=== PATIENT | female | born 1950 | race Caucasian/White ===

== ENCOUNTER 2018-11-17 07:45 | Day surgery (SDC) | payer MEDICARE, OTHER ==
[~2018-11-17 07:45] MED LIST: BRIMONIDINE 0.2% OPHTH DROPS 5 ML ONE; BSS/LIDOCAINE/EPINEPHRINE 1 ML SYRINGE ONE; CYCLOPENTOLATE 1% OPHTH DROPS 2 ML ONE; KETOROLAC 0.45% OPHTH DROPS ONE; PHENYLEPHRINE 2.5% OPHTH 2 ML DROPS ONE; PROPARACAINE 0.5% OPHTH DROPS 15 ML ONE; TIMOLOL 0.5% OPHTH DROPS ONE; TRIAMCIN/MOXIFLOX OPHTHALMIC 0.6 ML VIAL IO ONE; VANCOMYCIN OPHTHALMI 8MG/0.8ML 8 MG/0.8 ML SYRINGE IO ONE
--- NOTE | 2018-11-17 09:34 | ANESTHESIA ---
Pre-Anesthesia VS, & Labs - Diagnosis Left senile combined cataract - Procedure Left laser assisted phaco with IOL implant Vital Signs: Temp Pulse Resp BP Pulse Ox 36.4 C L 76 18 148/70 H 95 11/17/18 07:55 11/17/18 07:55 11/17/18 07:55 11/17/18 07:55 11/17/18 07:55 Height 5 ft 7 in Weight (kg) 69.3 kg - NPO >8 hours - Is Patient ?: No Home Medications and Allergies Home Medications: Ambulatory Orders Celecoxib [CeleBREX] 200 mg PO DAILY 11/17/18 Hydrochlorothiazide 11/17/18 Celecoxib [CeleBREX] 200 mg PO DAILY 11/17/18 Hydrochlorothiazide 11/17/18 Allergies/Adverse Reactions: Allergies Allergy/AdvReac Type Severity Reaction Status Date / Time No Known Drug Allergies Allergy Verified 11/17/18 08:09 Anes History & Medical History - Anesthetic History Anesthesia Complications: reports: No previous complications Family history of Anesthesia Complications: Denies Family history of Malignant Hyperthermia: Denies - Medical History Cardiovascular: reports: None, Hypertension Gastrointestinal: reports: None Urinary: reports: None Neuro: reports: None Musculoskeletal: reports: Osteoarthritis Endocrine/Autoimmune: reports: None Blood Disorders: reports: None Skin: reports: None Smoking Status: Former smoker Psychosocial: reports: No issues indicated Exam General: Alert, Oriented x3 Dental: WNL Mouth Opening: Greater than 4 Fingerbreadths Neck Mobility: Normal Mallampati classification: I Thyromental Distance: greater than 6 cm Respiratory: Lungs clear Cardiovascular: Regular rate Neurological: Normal speech Mental/Cognitive Status: Alert/Oriented X3 Cognitive Status: Within normal limits Plan Anesthesia Type: MAC Consent for Procedure(s) Verified and Reviewed: Yes Code Status: Attempt Resuscitation ASA classification: 2-Mild systemic disease Is this case an emergency?: No
[2018-11-17] MEDS ORDERED: PROPARACAINE 0.5% OPHTH DROPS 15 ML LEFTEYE ONE (09:35)
[2018-11-17] MEDS ORDERED: EPINEPHrine 1 MG/ML AMP IVP ONE (09:35)
[2018-11-17] MEDS ORDERED: CHONDR SULF/HYALURONATE SYRINGE IO ONE (09:35)
[2018-11-17] MEDS ORDERED: BRIMONIDINE 0.2% OPHTH DROPS 5 ML OPTH ONE (09:35)
[2018-11-17] MEDS ORDERED: BSS/LIDOCAINE/EPINEPHRINE 1 ML SYRINGE IO ONE (09:37)
[2018-11-17] MEDS ORDERED: TIMOLOL 0.5% OPHTH DROPS OPTH ONE (09:38)
[2018-11-17] MEDS ORDERED: MIDAZOLAM 2 MG/2 ML VIAL IVP ONE (09:40)
[2018-11-17] MEDS ORDERED: LACTATED RINGERS 500 ML IV ONE (09:46)
[2018-11-17] MEDS ORDERED: KETOROLAC 15 MG/ML VIAL ONE (10:14)
[2018-11-17 10:19] VITALS: BP 119/58
--- NOTE | 2018-11-17 11:56 | OPERATIVE REPORT ---
DATE OF SERVICE: 11/17/2018 Physician: Jeronimo Funes MD DATE OF PREOPERATIVE DIAGNOSIS: Visually significant cataract, left eye. This was her first catarac t surgery. POSTOPERATIVE DIAGNOSIS: Visually significant cataract, left eye. This was her first cataract surge ry. NAME OF PROCEDURE: Phacoemulsification with posterior chamber intraocular lens implant, left eye, wi th laser assist. SURGEON: Jeronimo Funes MD ANESTHESIA: Monitored anesthesia care. COMPLICATIONS: None. OPERATIVE INDICATIONS: This is a 68-year-old woman with progressive vision loss in the left eye due to 2-3+ nuclear sclerotic and 1+ posterior subcapsular cataract. Best corrected visual acuity was 20 /20, with glare to hand motion vision in the left eye. Indications for surgery are overall decrease in vision, difficulty driving in low light or at night, difficulty driving at night because of headli ghts from the vehicles, and difficulty with glare or bright lights in any situation. 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 She was consented at length concerning the risks and benefits of cataract surgery, aft er which she expressed a desire to proceed with surgery. OPERATIVE PROCEDURE: The patient was taken to OR #3 and placed under monitored anesthesia care. A s urgical timeout was conducted confirming the correct patient, correct procedure, and correct surgical site. She was placed on the LenSx laser, and the eye docked to the laser interface. The laser perf ormed the capsulotomy, lens softening, phaco wounds and arcuate keratotomy incisions. She was then m christi to the operating microscope, given topical anesthesia, and prepped and draped in the usual steri le fashion. The eye was entered at the 6 and 3 o'clock positions. Intracameral Shugarcaine was inje cted into the anterior chamber, followed by Viscoat. The capsulorrhexis flap created by the LenSx la ser was removed from the anterior chamber. The nucleus was hydrodissected and phacoemulsified. The cortex was evacuated using automated infusion and aspiration. Provisc was injected in the capsular b ag, and a 17.5 diopter intraocular lens inserted in the bag. Approximately 0.8 mL of a mixture of Tr iamcinolone moxifloxacin and vancomycin was injected subconjunctivally in the superior quadrant for i nfection and inflammation prophylaxis. I and A was used to evacuate the fistulous materials. The ey e was inflated to physiologic pressure using balanced salt solution and found to be watertight. The patient was taken from the operating room in good condition and given postop instructions. TD: 11/17/2018 10:24
== END 2018-11-17 07:46 | disposition home or self-care (01) ==
LOC: SDS 07:45
PROVIDERS: ATTEND Ophthalmology
PROC: 08RK3JZ Replacement of Left Lens with Synthetic Substitute, Percutaneous Approach (ICD-10-PCS; principal; 2018-11-17 09:00)
DX: H25.812 Combined forms of age-related cataract, left eye (principal); I10 Essential (primary) hypertension; Z87.891 Personal history of nicotine dependence
CPT/HCPCS: 66984; A9270; J3490; J7120; V2632

== ENCOUNTER 2019-01-05 09:43 | Day surgery (SDC) | payer MEDICARE, OTHER ==
[2019-01-05] MEDS ORDERED: LACTATED RINGERS 500 ML IV ONE (10:43)
--- NOTE | 2019-01-05 10:48 | ANESTHESIA ---
Pre-Anesthesia VS, & Labs - Diagnosis right senile cataract - Procedure right cataract extraction with intraocular lens implant Height 5 ft 7 in - NPO >8 hours - Is Patient ?: Not Applicable Home Medications and Allergies Home Medications: Ambulatory Orders Atorvastatin [Lipitor] 10 mg PO DAILY 01/04/19 Celecoxib [CeleBREX] 200 mg PO DAILY 11/17/18 Hydrochlorothiazide 12.5 mg PO DAILY 11/17/18 Atorvastatin [Lipitor] 10 mg PO DAILY 01/04/19 Allergies/Adverse Reactions: Allergies Allergy/AdvReac Type Severity Reaction Status Date / Time No Known Drug Allergies Allergy Verified 11/17/18 08:09 Anes History & Medical History - Anesthetic History Anesthesia Complications: reports: No previous complications - Medical History Cardiovascular: reports: None, Hypertension Gastrointestinal: reports: None Urinary: reports: None Neuro: reports: None Musculoskeletal: reports: Osteoarthritis Endocrine/Autoimmune: reports: None Blood Disorders: reports: None Skin: reports: None Smoking Status: Former smoker Exam General: Alert Dental: WNL Neck Mobility: Normal Mallampati classification: I Respiratory: Lungs clear Mental/Cognitive Status: Alert/Oriented X3 Plan Anesthesia Type: MAC Consent for Procedure(s) Verified and Reviewed: Yes Code Status: Attempt Resuscitation ASA classification: 2-Mild systemic disease Is this case an emergency?: No
[2019-01-05] MEDS ORDERED: PROPARACAINE 0.5% OPHTH DROPS 15 ML RIGHTEYE ONE (10:50)
[2019-01-05] MEDS ORDERED: KETOROLAC 0.45% OPHTH DROPS RIGHTEYE ONE (10:50)
[2019-01-05] MEDS ORDERED: PHENYLEPHRINE 2.5% OPHTH 2 ML DROPS RIGHTEYE ONE (10:50)
[2019-01-05] MEDS ORDERED: CYCLOPENTOLATE 1% OPHTH DROPS 2 ML RIGHTEYE ONE (10:50)
[2019-01-05] MEDS ORDERED: MIDAZOLAM 2 MG/2 ML VIAL IVP ONE (11:33)
[2019-01-05] MEDS ORDERED: fentaNYL 100 MCG/2 ML VIAL IVP ONE (11:33)
[2019-01-05] MEDS ORDERED: CHONDR SULF/HYALURONATE SYRINGE IO ONE (11:39)
[2019-01-05] MEDS ORDERED: TIMOLOL 0.5% OPHTH DROPS OPTH ONE (11:39)
[2019-01-05] MEDS ORDERED: EPINEPHrine 1 MG/ML AMP IVP ONE (11:39)
[2019-01-05] MEDS ORDERED: BRIMONIDINE 0.2% OPHTH DROPS 5 ML OPTH ONE (11:39)
[2019-01-05] MEDS ORDERED: BSS/LIDOCAINE/EPINEPHRINE 1 ML SYRINGE IO ONE (11:39)
[2019-01-05] MEDS ORDERED: TRIAMCIN/MOXIFLOX OPHTHALMIC 0.6 ML VIAL IO ONE (11:40)
[2019-01-05] MEDS ORDERED: VANCOMYCIN OPHTHALMI 8MG/0.8ML 8 MG/0.8 ML SYRINGE IO ONE (11:40)
[2019-01-05] MEDS ORDERED: LACTATED RINGERS 300 ML IV ONE (11:45)
[2019-01-05 12:17] VITALS: BP 111/53
--- NOTE | 2019-01-05 13:07 | OPERATIVE REPORT ---
DATE OF SERVICE: 01/05/2019 Physician: Jeronimo Funes MD PREOPERATIVE DIAGNOSIS: Visually significant cataract, right eye, cataract surgery was performed on the left eye on 11/17/2018. POSTOPERATIVE DIAGNOSIS: Visually significant cataract, right eye, cataract surgery was performed on the left eye on 11/17/2018. PROCEDURE: Phacoemulsification with posterior chamber intraocular lens implant, right eye. SURGEON: Jeronimo Funes MD ANESTHESIA: Monitored anesthesia care. COMPLICATIONS: None. OPERATIVE INDICATIONS: This is a 68-year-old woman with progressive vision loss in the right eye due to 2-3+ nuclear sclerotic and 1+ posterior subcapsular cataract. Best corrected visual acuity was 2 0/20 with glare to 20/40 in the right eye. Indications for surgery were overall decrease in vision, difficulty seeing street signs, difficulty driving in low light or at night, difficulty driving at [facility] because of headlights from other vehicles, and difficulty with clearer or bright lights in any si tuation. She was consented at length concerning risks and benefits of cataract surgery, after which she expressed a desire to proceed with surgery. OPERATIVE PROCEDURE: The patient was taken into OR #3 and placed under monitored anesthesia care. A surgical timeout was conducted confirming the correct patient, correct procedure, and correct surgic al site. She was given topical anesthesia, and then prepped and draped in the usual sterile fashion. The eye was entered at the 12 and 9 o'clock positions. Intracameral Shugarcaine was injected into the anterior chamber, followed by Viscoat. A continuous-tear curvilinear capsulorrhexis was performe d. The nucleus was hydrodissected and phacoemulsified. The cortex was evacuated using automated inf usion and aspiration. Provisc was injected into the capsular bag, and a 17.5 diopter intraocular donn s inserted in the bag. Approximately 0.8 mL of a mixture of triamcinolone, moxifloxacin, and vancomy linnea was injected subconjunctivally in the superior quadrant for infection and inflammation prophylaxi s. I and A was used to evacuate the viscoelastic material. The eye was inflated to physiologic pres sure using balanced salt solution and found to be watertight. The patient was taken from the operati ng room in good condition and given postoperative instructions. TD: 01/05/2019 11:57
== END 2019-01-05 09:44 | disposition home or self-care (01) ==
LOC: SDS 09:43
PROVIDERS: ATTEND Ophthalmology
PROC: 08RJ3JZ Replacement of Right Lens with Synthetic Substitute, Percutaneous Approach (ICD-10-PCS; principal; 2019-01-05 11:30)
DX: H25.811 Combined forms of age-related cataract, right eye (principal); I10 Essential (primary) hypertension; Z87.891 Personal history of nicotine dependence; Z79.899 Other long term (current) drug therapy; Z98.42 Cataract extraction status, left eye
CPT/HCPCS: 66984; A9270; J3490; V2632

== ENCOUNTER 2019-01-23 12:35 | Outpatient (CLI) | payer MEDICARE, OTHER ==
[2019-01-24 13:02] LABS: HEPATITIS B SURFACE ANTIGEN NON-REACTIVE (NON-REACTIVE)
[2019-01-24 13:57] LABS: HEPATITIS C ANTIBODY NON-REACTIVE (NON-REACTIVE)
[2019-01-25 12:47] LABS: HSV 1 IGG TYPE SPECIFIC AB 12.6 index; HSV 2 IGG TYPE SPECIFIC AB 8.08 index
== END 2019-01-23 12:36 | disposition home or self-care (01) ==
LOC: LAB 12:35
PROVIDERS: ATTEND Obstetrics & Gynecology
DX: R21 Rash and other nonspecific skin eruption (principal)
CPT/HCPCS: 36415; 81599; 86695; 86696; 86787; 86803; 87340

== ENCOUNTER 2019-07-04 13:59 | Outpatient (CLI) | payer MEDICARE, OTHER ==
[2019-07-04] MEDS ORDERED: GADOBUTROL 10 MMOL/10 ML VIAL ONE (14:47)
[2019-07-04] MEDS ORDERED: GADOBUTROL 10 MMOL/10 ML VIAL IVP ONE (16:31)
--- NOTE | 2019-07-05 10:10 | MRI Report ---
Reason: BINOCULAR DIPLOPIA Procedure Date: 07/04/2019 Accession Number: [id number] / [id number] Procedure: MRI - Brain W/WO CPT Code: Final Report FULL RESULT: MRI BRAIN AND ORBITS WITHOUT AND WITH CONTRAST INDICATION: 68-year-old female with binocular diplopia. TECHNIQUE: Imaging of the brain and orbits has been performed. The following sequences were obtained: Brain 1. Sagittal T1 spin-echo. 2. Coronal fat-saturated T2. 3. Axial T1 3D, FLAIR, T2* and DWI. 4. 10 mL IV Gadavist. Postcontrast T1 3D and T1 spin-echo axials. Orbits 1. Thin slice, high-resolution, fat saturated T2 coronal. 2. Postcontrast, thin slice, high-resolution, fat-saturated T1 axial and coronal. COMPARISON: None. FINDINGS: Orbits There is evidence of previous cataract surgery bilaterally. Imaging of the optic globes is otherwise unremarkable. There is no evidence of retinal or choroidal detachment. No intraocular mass lesion is demonstrated. No abnormal T2 hyperintensity or enhancement is identified in either optic nerve. The extraocular muscles and lacrimal glands are symmetric. No intraorbital mass lesion is demonstrated. The superior ophthalmic veins are patent and appear to be of normal size. There is symmetric enhancement of the cavernous sinuses without evidence of cavernous sinus thrombosis or mass. The optic chiasm is normal and noncompressed. No pathology is identified in the distribution of the optic tracts, optic radiations or visual cortex. Brain There is a mild generalized prominence of the cerebral cortical sulci, considered within normal limits for stated age. Ventricular size is normal. A mild amount of white matter disease is identified in the supratentorial brain, likely representing chronic microangiopathy. The signal intensity of the cortex and white matter is otherwise unremarkable. In particular, no obvious brainstem lesion is demonstrated. There appear to be flow voids for the main intracranial arteries. No abnormal diffusion restriction is demonstrated. There is no evidence of acute or chronic hemorrhage on the T2*GRE sequence. No abnormal extra-axial fluid collection. No mass effect or midline shift. No enhancing space-occupying mass lesion is demonstrated. No pathologic meningeal or cranial nerve enhancement is identified. There appears to be normal intravascular contrast enhancement in the dural venous sinuses and deep venous structures. This effectively excludes the possibility of dural venous sinus thrombosis. Other: There is mild mucosal thickening scattered throughout the ethmoid air cells. The paranasal sinuses are otherwise essentially clear. No significant mastoid or middle ear effusion is demonstrated. The marrow signal intensity in the regional skeletal structures is unremarkable. IMPRESSION: 1. A mild amount of white matter disease is identified in the supratentorial brain. The findings are relatively nonspecific, however, this most likely represents chronic microangiopathy. 2. Otherwise unremarkable MRI examination of the brain and orbits. In particular, no potential etiology for binocular diplopia has been identified.
--- NOTE | 2019-07-07 09:50 | MRI Report ---
Reason: BINOCULAR DIPLOPIA Procedure Date: 07/04/2019 Accession Number: [id number] / [id number] Procedure: MRI - Angio Brain W/O (MRA) CPT Code: Final Report FULL RESULT: EXAM MRA BRAIN EXAM DATE: 07/04/2019 04:00 PM. CLINICAL HISTORY: BINOCULAR DIPLOPIA. History of daily headaches. COMPARISON: BRAIN W/WO 07/04/2019 3:50 PM. TECHNIQUE: Multiplanar, multisequence MRA sequences of the brain were performed. Other: None. Post-processing: Multiplanar 3D MIP reconstructions. IV Contrast: None. FINDINGS: The right vertebral artery intradural segment is smooth and nonstenotic. The left vertebral artery intradural segment is smooth and nonstenotic. The right posterior inferior cerebellar artery is without flow-limiting stenosis. There is a left AICA PICA anatomical variant. The right anterior inferior cerebellar artery is smooth and nonstenotic. The basilar artery is without flow-limiting stenosis. The right superior cerebellar artery is without flow-limiting stenosis. The left superior cerebellar artery is without flow-limiting stenosis. There is a small anterior communicating artery. The right P1 and P2 segments of the right posterior cerebral artery are without flow-limiting stenosis. The left P1 and P2 segments of the left posterior cerebral artery are without flow-limiting stenosis. The right posterior communicating artery is without flow-limiting stenosis. The left posterior communicating artery is without flow-limiting stenosis. The right intracranial internal carotid artery is smooth and nonstenotic. The left intracranial internal carotid artery is smooth and nonstenotic. The right M1 and proximal M2 segments of the right middle cerebral artery are smooth and nonstenotic. The left M1 and proximal M2 segments of the left middle cerebral artery are smooth and nonstenotic. The right A1 segment is smooth and nonstenotic. The left A1 segment is smooth and nonstenotic. There is a small anterior communicating artery. The right A2 segment of the right anterior cerebral artery is smooth and nonstenotic. The left A2 segment of the left anterior cerebral artery is smooth and nonstenotic. IMPRESSION: 1. There is no hemodynamically significant stenosis within the head. There is no evidence of cerebral aneurysm.
== END 2019-07-04 14:00 | disposition home or self-care (01) ==
LOC: DI 13:59
PROVIDERS: ATTEND Family Medicine
DX: H53.2 Diplopia (principal); R90.82 White matter disease, unspecified
CPT/HCPCS: 70553; A9585; 70544

== ENCOUNTER 2020-04-02 12:28 | Outpatient (CLI) | payer MEDICARE, OTHER ==
[2020-04-02 15:44] LABS: BASOPHILS % (AUTO) 0.2 %; EOSINOPHILS % (AUTO) 0.3 %; HGB - HEMOGLOBIN 14.1 g/dL (12.0-16.0); LYMPHOCYTES % (AUTO) 17.6 %; MEAN CORPUSCULAR HEMOGLOBIN 33.7 pg (27.0-31.0); MEAN CORPUSCULAR HGB CONC 35.5 g/dL (32.0-36.0); MEAN CORPUSCULAR VOLUME 94.7 fL (81.0-99.0); MEAN PLATELET VOLUME 11.4 fL (7.9-10.8); MONOCYTES # (AUTO) 0.4 10^3/uL (0.0-1.0); MONOCYTES % (AUTO) 6.7 %; NEUTROPHILS # (AUTO) 4.3 10^3/uL (1.5-6.6); PLT - PLATELET COUNT 223 10^3/uL (130-450); RED BLOOD COUNT 4.19 10^6/uL (4.20-5.40); RED CELL DISTRIBUTION WIDTH 12.9 % (12.0-15.0); WHITE BLOOD COUNT 5.8 x10^3/uL (4.8-10.8)
[2020-04-02 16:06] LABS: ALBUMIN 4.8 g/dL (3.2-5.5); ALBUMIN/GLOBULIN RATIO 1.5 (1.0-2.2); ALKALINE PHOSPHATASE 47 IU/L (42-121); ALT ALANINE AMINOTRANSFERASE 42 IU/L (10-60); AST ASPARTATE AMINOTRANSFERASE 35 IU/L (10-42); BILIRUBIN,TOTAL 0.7 mg/dL (0.2-1.0); BUN - BLOOD UREA NITROGEN 12 mg/dL (6-20); CALCIUM 9.5 mg/dL (8.5-10.3); CARBON DIOXIDE - CO2 26 mmol/L (21-32); CHLORIDE 101 mmol/L (101-111); CREATININE 0.7 mg/dL (0.4-1.0); GLUCOSE 104 mg/dL (70-100); SODIUM 136 mmol/L (135-145)
[2020-04-02 16:07] LABS: CRP - C-REACTIVE PROTEIN < 1.0 mg/dL (0-1.0)
[2020-04-02 16:12] LABS: THYROID STIMULATING HORMONE 1.56 uIU/mL (0.34-5.60)
[2020-04-02 16:13] LABS: FREE T4 (FREE THYROXINE) 0.84 ng/dL (0.58-1.64)
== END 2020-04-02 12:29 | disposition home or self-care (01) ==
LOC: LAB.S 12:28
PROVIDERS: ATTEND Physician Assistant
DX: M35.3 Polymyalgia rheumatica (principal); M53.83 Other specified dorsopathies, cervicothoracic region; R53.83 Other fatigue
CPT/HCPCS: 36415; 80053; 84439; 84443; 85025; 85651; 86140

== ENCOUNTER 2020-04-04 12:11 | Outpatient (CLI) | payer MEDICARE, OTHER ==
[2020-04-05 09:57] LABS: HIV AG/AB 4TH GEN NON-REACTIVE (NON-REACTIVE)
[2020-04-05 13:12] LABS: HEPATITIS A IGM NON-REACTIVE (NON-REACTIVE); HEPATITIS B SURFACE ANTIGEN NON-REACTIVE (NON-REACTIVE); HEPATITIS C ANTIBODY NON-REACTIVE (NON-REACTIVE)
== END 2020-04-04 12:12 | disposition home or self-care (01) ==
LOC: LAB.S 12:11
PROVIDERS: ATTEND Nurse Practitioner Family
DX: R53.81 Other malaise (principal); Z20.828 Contact with and (suspected) exposure to other viral communicable diseases
CPT/HCPCS: 36415; 80074; 87086; G0475; U0004; 87389

== ENCOUNTER 2020-04-10 14:33 | Outpatient (CLI) | payer MEDICARE, OTHER | END 2020-04-10 14:34 | disposition home or self-care (01) | LOC: LAB.S 14:33 | PROVIDERS: ATTEND Nurse Practitioner Family | DX: R53.81 Other malaise (principal) | CPT/HCPCS: 87086 ==

== ENCOUNTER 2020-04-17 12:41 | Outpatient (CLI) | payer MEDICARE, OTHER | END 2020-04-17 12:42 | disposition home or self-care (01) | LOC: LAB.S 12:41 | PROVIDERS: ATTEND Nurse Practitioner Family | DX: R53.81 Other malaise (principal) | CPT/HCPCS: 87086 ==

== ENCOUNTER 2020-04-24 07:40 | Outpatient (CLI) | payer MEDICARE, OTHER ==
[2020-04-24] MEDS ORDERED: IOVERSOL 320 50 ML VIAL ONE (08:08)
[2020-04-24] MEDS ORDERED: IOVERSOL 320 100 ML VIAL IVP ONE (08:08)
[2020-04-24] MEDS: IOVERSOL 320 50 ML VIAL PO ONE (13:39)
[2020-04-24] MEDS: IOVERSOL 320 100 ML VIAL IVP ONE (13:39)
--- NOTE | 2020-04-24 14:10 | CT Report ---
PROCEDURE: Abdomen/Pelvis W INDICATIONS: PELVIC AND PERINEAL PAIN CONTRAST: IV CONTRAST: Optiray 320 ml: 100 PO CONTRAST: Optiray 320 ml50 TECHNIQUE: After the administration of oral and intravenous contrast, 5 mm thick sections acquired from the diap hragms to the symphysis. 5 mm thick coronal and sagittal reformats were acquired. For radiation dos e reduction, the following was used: automated exposure control, adjustment of mA and/or kV accordin g to patient size. COMPARISON: None. FINDINGS: Image quality: Excellent. ABDOMEN: Lung bases: Patchy bibasilar atelectasis versus scarring. Heart size is normal. Moderate hiatal edilson ia. Solid organs: Liver and spleen are normal in size and enhancement. Gallbladder is unremarkable Sae iary system is non dilated. Pancreas enhances normally. No adrenal nodules. Kidneys demonstrate no rmal size and enhancement, without hydronephrosis. Peritoneum and bowel: Bowel loops demonstrate normal wall thickness and caliber. No free fluid or a ir. Nodes and vessels: No retroperitoneal or mesenteric adenopathy by size criteria. Aorta and inferior vena cava are normal in size. Mild aortic atherosclerotic calcifications. Miscellaneous: No ventral hernias. PELVIS: Genitourinary: The bladder is decompressed. Miscellaneous: No inguinal hernias or adenopathy. Bones: No suspicious bony lesions. No vertebral body compression fractures. IMPRESSION: 1. Moderate hiatal hernia. 2. No evidence acute abdominal process. Reviewed by: Aidan Latif MD on 04/24/2020 1:08 PM TRENT Approved by: Aidan Latif MD on 04/24/2020 1:08 PM AKDT Station ID: [id number]
== END 2020-04-24 07:41 | disposition home or self-care (01) ==
LOC: DI 07:40
PROVIDERS: ATTEND Nurse Practitioner Family
DX: K44.9 Diaphragmatic hernia without obstruction or gangrene (principal)
CPT/HCPCS: 74177; Q9967

== ENCOUNTER 2020-04-29 17:48 | Outpatient (CLI) | payer MEDICARE, OTHER ==
--- NOTE | 2020-04-29 21:01 | Ultrasound Report ---
PROCEDURE: Pelvic w/Transvaginal INDICATIONS: RELVIC AND PERINEAL PAIN TECHNIQUE: Real-time scanning was performed of the pelvic organs, with image documentation. Additional endovagi nal scanning was necessary due to incomplete visualization of the adnexal and endometrial structures by transabdominal scanning. COMPARISON: None. FINDINGS: Transabdominal scanning: Limited scanning through the kidneys shows no left-sided hydronephrosis. Mi ld prominence of right renal pelvis is seen. 3.5 x 3.3 cm right renal cyst is noted. No pathologic fr ee abdominal or pelvic fluid. Endovaginal scanning: Uterus: Uterus is normal in size at 5.1 x 1.9 x 2.9 cm. Mildly heterogeneous myometrial echotexture is seen. 2 x 2.1 x 2 cm intramural fibroid is seen in right anterior myometrium. 8 x 7 x 12 mm polyp is seen within endometrium near fundus. The endometrium measures 2 mm in combined thickness. No oth er endometrial mass or fluid is seen. Ovaries: Bilateral ovaries are not well visualized on this study. No gross adnexal mass or fluid is seen. IMPRESSION: 1. Uterine fibroid as above. Suggestion of a 8 x 7 x 12 mm endometrial polyp near fundus. [employer] correla tion is recommended. 2. Bilateral ovaries are not well visualized on this study. 3. Incidentally noted of mild prominence of right renal pelvis and right renal cyst as above. Reviewed by: Teddy Acuña MD on 04/29/2020 9:00 PM PDT Approved by: Teddy Acuña MD on 04/29/2020 9:00 PM PDT Station ID: [id number]
== END 2020-04-29 17:49 | disposition home or self-care (01) ==
LOC: DI 17:48
PROVIDERS: ATTEND Nurse Practitioner Family
DX: D25.1 Intramural leiomyoma of uterus (principal); R93.89 Abnormal findings on diagnostic imaging of other specified body structures
CPT/HCPCS: 76830; 76856

== ENCOUNTER 2020-06-05 13:21 | Outpatient (CLI) | payer MEDICARE, OTHER ==
--- NOTE | 2020-06-05 14:54 | XRAY Report ---
PROCEDURE: Lumbar Spine 2 View INDICATIONS: LOW BACK PAIN TECHNIQUE: 2 views of the lumbar spine were acquired. COMPARISON: None. FINDINGS: Bones: 5 [id number] vertebrae are present. There is normal bony alignment. No vertebral body compression fractures. No suspicious bony lesions. Note is made of mild facet osteoarthritis greate r on the left than the right at L5-S1. Soft tissues: Overlying bowel gas pattern is normal. No suspicious soft tissue calcifications. IMPRESSION: Left-sided predominant facet osteoarthritis at L5-S1. No compression fracture found. No significant disc height reduction. Reviewed by: Benjamín Smith MD on 06/05/2020 2:53 PM PDT Approved by: Benjamín Smith MD on 06/05/2020 2:53 PM PDT Station ID: [id number]
--- NOTE | 2020-06-05 14:57 | XRAY Report ---
PROCEDURE: Pelvis 1 View INDICATIONS: LOW BACK PAIN TECHNIQUE: 1 view(s) of the pelvis acquired. COMPARISON: CT abdomen/pelvis 04/24/2020 FINDINGS: Bones: No fractures or dislocations. No suspicious bony lesions. Mild symmetric hip joint space na rrowing, consistent with a small degree of osteoarthritis. Soft tissues: Visualized gas pattern is normal. No suspicious soft tissue calcifications. IMPRESSION: Source of low back pain is not seen. Mild symmetric hip joint osteoarthritis. Reviewed by: Benjamín Smith MD on 06/05/2020 2:56 PM PDT Approved by: Benjamín Smith MD on 06/05/2020 2:56 PM PDT Station ID: [id number]
== END 2020-06-05 13:22 | disposition home or self-care (01) ==
LOC: DI 13:21
PROVIDERS: ATTEND Internal Medicine Rheumatology
DX: M47.816 Spondylosis without myelopathy or radiculopathy, lumbar region (principal); M16.0 Bilateral primary osteoarthritis of hip
CPT/HCPCS: 72100; 72170

== ENCOUNTER 2020-06-28 10:35 | Outpatient (CLI) | payer MEDICARE, OTHER ==
[2020-06-28 10:52] LABS: BASOPHILS % (AUTO) 0.3 %; EOSINOPHILS % (AUTO) 1.1 %; LYMPHOCYTES # (AUTO) 1.1 10^3/uL (1.5-3.5); LYMPHOCYTES % (AUTO) 29.8 %; MEAN CORPUSCULAR HEMOGLOBIN 31.3 pg (27.0-31.0); MEAN CORPUSCULAR HGB CONC 33.8 g/dL (32.0-36.0); MEAN CORPUSCULAR VOLUME 92.6 fL (81.0-99.0); MEAN PLATELET VOLUME 10.6 fL (7.9-10.8); MONOCYTES # (AUTO) 0.4 10^3/uL (0.0-1.0); MONOCYTES % (AUTO) 9.5 %; NEUTROPHILS # (AUTO) 2.2 10^3/uL (1.5-6.6); PLT - PLATELET COUNT 223 10^3/uL (130-450); RED BLOOD COUNT 4.47 10^6/uL (4.20-5.40); RED CELL DISTRIBUTION WIDTH 12.3 % (12.0-15.0); WHITE BLOOD COUNT 3.7 x10^3/uL (4.8-10.8)
[2020-06-28 11:12] LABS: ALBUMIN 4.5 g/dL (3.2-5.5); ALBUMIN/GLOBULIN RATIO 1.5 (1.0-2.2); BILIRUBIN,TOTAL 0.7 mg/dL (0.2-1.0); CALCIUM 9.2 mg/dL (8.5-10.3); CREATININE 0.8 mg/dL (0.4-1.0); TOTAL PROTEIN 7.6 g/dL (6.7-8.2)
== END 2020-06-28 10:36 | disposition home or self-care (01) ==
LOC: LAB 10:35
PROVIDERS: ATTEND Emergency Medicine
DX: Z01.818 Encounter for other preprocedural examination (principal); N84.0 Polyp of corpus uteri; Z20.828 Contact with and (suspected) exposure to other viral communicable diseases
CPT/HCPCS: 36415; 80053; 85025; 93005; U0004

== ENCOUNTER 2020-07-03 07:25 | Day surgery (SDC) | payer MEDICARE, OTHER ==
[~2020-07-03 07:25] MED LIST changes: +ACETAMINOPHEN 1,000 MG/100 ML 100 ML IV ONE; -BRIMONIDINE 0.2% OPHTH DROPS 5 ML ONE; -BSS/LIDOCAINE/EPINEPHRINE 1 ML SYRINGE ONE; +CEFAZOLIN SODIUM IN 0.9 % NACL 2 GM/100 ML BAG IV ONE; +CELECOXIB 100 MG CAPSULE PO ONE; -CYCLOPENTOLATE 1% OPHTH DROPS 2 ML ONE; +GABAPENTIN 400 MG CAPSULE ONE; -KETOROLAC 0.45% OPHTH DROPS ONE; -PHENYLEPHRINE 2.5% OPHTH 2 ML DROPS ONE; -PROPARACAINE 0.5% OPHTH DROPS 15 ML ONE; -TIMOLOL 0.5% OPHTH DROPS ONE; -TRIAMCIN/MOXIFLOX OPHTHALMIC 0.6 ML VIAL IO ONE; -VANCOMYCIN OPHTHALMI 8MG/0.8ML 8 MG/0.8 ML SYRINGE IO ONE
[2020-07-03] MEDS ORDERED: PROPOFOL 200 MG/20 ML VIAL IVP ONE (07:26)
[2020-07-03] MEDS ORDERED: DEXAMETHASONE 4 MG/ML VIAL IVP ONE (07:26)
[2020-07-03] MEDS ORDERED: KETOROLAC 30 MG/ML VIAL IVP ONE (07:26)
[2020-07-03] MEDS ORDERED: ONDANSETRON 4 MG/2 ML VIAL IVP ONE (07:26)
[2020-07-03] MEDS ORDERED: fentaNYL 100 MCG/2 ML VIAL IVP ONE (07:26)
[2020-07-03] MEDS ORDERED: MIDAZOLAM 2 MG/2 ML VIAL IVP ONE (07:26)
[2020-07-03] MEDS ORDERED: ACETAMINOPHEN 1,000 MG/100 ML 100 ML IV ONE (07:26)
[2020-07-03] MEDS ORDERED: LIDOCAINE-MPF 2% 5 ML VIAL IM ONE (07:26)
[2020-07-03] MEDS ORDERED: BUPIVACAINE 0.25%-EPI 1:200000 PF 30 ML VIAL ONE (07:39)
[2020-07-03] MEDS ORDERED: SILVER NITRATE APPLICATOR TOP ONE (07:39)
[2020-07-03] MEDS ORDERED: LACTATED RINGERS 1,000 ML IV ONE ×2 (07:41→10:25)
--- NOTE | 2020-07-03 08:23 | ANESTHESIA ---
Pre-Anesthesia VS, & Labs - Diagnosis endometrial polyp - Procedure myosure hysteroscopy Vital Signs: Temp Pulse Resp BP Pulse Ox 36.6 C 72 12 136/66 H 94 07/03/20 07:43 07/03/20 07:43 07/03/20 07:43 07/03/20 07:43 07/03/20 07:43 Height: 5 ft 7 in Weight (kg): 74.6 kg Body Mass Index: 25.7 BMI Classification: Overweight - NPO >8 hours - Is Patient ?: No - Lab Results Current Lab Results: Laboratory Tests 07/03/20 07:59: POC Whole Bld Glucose 94 Lab results reviewed: Yes Home Medications and Allergies Home Medications: Ambulatory Orders Cholecalciferol [Vitamin D3] 5,000 unit PO DAILY 06/25/20 Hydroxychloroquine [Plaquenil] 300 mg PO DAILY 06/25/20 methylPREDNISolone [Medrol] 4 mg PO DAILY PRN 06/25/20 Celecoxib [CeleBREX] 100 - 200 mg PO DAILY 11/17/18 Hydrochlorothiazide 25 mg PO DAILY 11/17/18 Cholecalciferol [Vitamin D3] 5,000 unit PO DAILY 06/25/20 Hydroxychloroquine [Plaquenil] 300 mg PO DAILY 06/25/20 methylPREDNISolone [Medrol] 4 mg PO DAILY PRN 06/25/20 Allergies/Adverse Reactions: Allergies Allergy/AdvReac Type Severity Reaction Status Date / Time No Known Drug Allergies Allergy Verified 11/17/18 08:09 Anes History & Medical History - Anesthetic History Anesthesia Complications: reports: No previous complications Family history of Anesthesia Complications: Denies Family history of Malignant Hyperthermia: Denies - Medical History Cardiovascular: reports: None, Hypertension Pulmonary: reports: None Gastrointestinal: reports: None Urinary: reports: None Neuro: reports: None Musculoskeletal: reports: Osteoarthritis Endocrine/Autoimmune: reports: None Blood Disorders: reports: None Skin: reports: None Smoking Status: Former smoker - Surgical History General: Colonoscopy, EGD Eyes Ears Nose Throat (EENT): Cataracts, Tracheostomy Cardiothoracic: Other (thalmus surgery w/sternotomy) Exam General: Alert, Oriented x3, Cooperative Dental: WNL Mouth Openin Fingerbreadth Neck Mobility: Normal Mallampati classification: I Thyromental Distance: greater than 6 cm Respiratory: Lungs clear, Normal breath sounds, No respiratory distress Cardiovascular: Regular rate Neurological: Normal speech Mental/Cognitive Status: Alert/Oriented X3, Normal for patient Cognitive Status: Within normal limits Plan Anesthesia Type: General Consent for Procedure(s) Verified and Reviewed: Yes Code Status: Attempt Resuscitation ASA classification: 2-Mild systemic disease Is this case an emergency?: No
[2020-07-03] MEDS ORDERED: ePHEDrine 50 MG/ML VIAL IVP PRN (09:17)
[2020-07-03] MEDS ORDERED: NALOXONE 0.4 MG/ML VIAL IVP PRN (09:17)
[2020-07-03] MEDS ORDERED: ATROPINE ABBOJECT 1 MG/10 ML SYRINGE IVP PRN (09:17)
[2020-07-03] MEDS ORDERED: MORPHINE 2 MG/ML CARPUJECT IVP PRN (09:17)
[2020-07-03] MEDS ORDERED: fentaNYL 100 MCG/2 ML VIAL IVP PRN (09:17)
[2020-07-03] MEDS ORDERED: METOCLOPRAMIDE 10 MG/2 ML VIAL IVP PRN (09:17)
[2020-07-03] MEDS ORDERED: ONDANSETRON 4 MG/2 ML VIAL IVP PRN ×2 (09:17→10:27)
[2020-07-03] MEDS ORDERED: BUPIVACAINE 0.25%-EPI 1:200000 PF 30 ML VIAL SUBQ ONE ×2 (09:41)
[2020-07-03] MEDS ORDERED: LACTATED RINGERS 1,000 ML IV SCH (10:00)
[2020-07-03] MEDS ORDERED: oxyCODONE 5 MG TABLET PO PRN (10:27)
[2020-07-03] MEDS ORDERED: HYDROcod/ACETAM 5/325 MG TABLET PO PRN (10:27)
[2020-07-03] MEDS ORDERED: LORazepam 2 MG/ML VIAL IVP PRN (10:27)
[2020-07-03] MEDS: HYDROmorphone 0.5 MG/0.5 ML SYRINGE IVP PRN ×2 (10:33→10:45)
--- NOTE | 2020-07-03 10:33 | OPERATIVE REPORT ---
Operative Report - General Procedure Date: 07/03/20 Planned Procedure: Hysterscopic resection of emdonetrial poly. Pre-Op Diagnosis: endometrial polyp. Procedure Performed: Hysterscopic resection of endometrial polyp - Procedure Note Primary Surgeon: Donovan Lovett MD Anesthesia Provider: Mendoza Givens CRNA Anesthesia Technique: General LMA IV Fluids (mL): 700 Estimated Blood Loss (mL): 10 Urine Output (mL): 50
[2020-07-03] MEDS ORDERED: HYDROmorphone 0.5 MG/0.5 ML SYRINGE ONE ×2 (10:43→10:53)
[2020-07-03 11:34] VITALS: BP 122/52
--- NOTE | 2020-07-03 13:10 | OPERATIVE REPORT ---
DATE OF SERVICE: 07/03/2020 Physician: Donovan Lovett MD PREOPERATIVE DIAGNOSIS: Endometrial polyp. POSTOPERATIVE DIAGNOSIS: Endometrial polyp. PROCEDURE PERFORMED: Hysteroscopic resection of endometrial polyp with MyoSure. SURGEON: Donovan Lovett MD ANESTHESIA PROVIDER: ISAAC Horta. ANESTHETIC: General via laryngeal mask airway. FINDINGS: Upon entering the endometrial cavity, there was evidence of a polyp, which was attached to the anterior wall of the uterus. The uterus sounded 7 cm. The cervix was very stenotic. PROCEDURE: Following adequate general anesthesia via LMA, patient was placed in dorsal lithotomy pos ition in Jacob stirrups. At this point, she was prepped and draped in the usual fashion. A timeout was performed, at which concerns of a very stenotic cervix was reviewed. At this point, the cervix w as visualized, grasped with a single-tooth tenaculum. At this point, a lacrimal probe was used to is olate the endometrial canal. This was then progressively dilated up to a size 8 mm dilator. A video hysteroscope was then placed under direct visualization. The entire endometrial cavity was visualiz ed as well as the endometrial polyp, which appeared to be attached on the anterior wall of the uterus . Then, utilizing the MyoSure light this was resected in its entirety. The hysteroscope was used to visualize the base of the polyp as well as the cornual areas. There was no evidence of any further bleeding. The hysteroscope was removed. The cervix was released from the single-tooth tenaculum. T he uterosacral ligaments were injected both sides with 10 mL of 0.25% Marcaine with epinephrine. The patient tolerated the procedure well and was taken to recovery in stable condition. Sponge and need le counts were correct. TD: 07/03/2020 10:40
--- NOTE | 2020-07-03 17:31 | ANESTHESIA POST OP EVALUATION ---
Anesthesia Post Eval - Post Anesthesia Eval Vitals: Last Vital Signs Temp 36.9 C 07/03/20 11:33 Pulse 70 07/03/20 11:33 Resp 16 07/03/20 11:33 BP 122/52 L 07/03/20 11:33 Pulse Ox 94 07/03/20 11:33 CV Function Including HR & BP: positive: Stable Pain Control: positive: Satisfactory Nausea & Vomiting: positive: Negative Mental Status: positive: Baseline Respiratory Status: Airway Patent Hydration Status: Satisfactory Anesthesia Complications: positive: None
== END 2020-07-03 07:26 | disposition home or self-care (01) ==
LOC: SDS 07:25
PROVIDERS: ATTEND Obstetrics & Gynecology
PROC: 0UB98ZZ Excision of Uterus, Via Natural or Artificial Opening Endoscopic (ICD-10-PCS; principal; 2020-07-03 09:00)
DX: N84.0 Polyp of corpus uteri (principal); R10.2 Pelvic and perineal pain; N95.2 Postmenopausal atrophic vaginitis; I10 Essential (primary) hypertension; Z87.891 Personal history of nicotine dependence
CPT/HCPCS: 58558; A9270; J0131; J0690; J1170; J7120

== ENCOUNTER 2020-08-16 13:17 | Outpatient (CLI) | payer MEDICARE, OTHER ==
--- OUTSIDE RECORDS SUMMARY | 2020-08-21 01:40 | EXTERNAL MEDICAL SUMMARY RPT | Continuity of Care Document ---
:1950 Demographics Phone Unavailable Preferred Language Faroese Marital Status Unknown Sikh Affiliation Unknown Race Unknown Ethnic Group Unknown Author Organization [facility] Address [address] [place] [address] Phone Care Team Providers Name Role Phone MD Unavailable Unavailable MD Unavailable Unavailable Registrar Unavailable Unavailable Bogdan Unavailable Unavailable Registrar Unavailable Unavailable MA Unavailable Unavailable MD Unavailable Unavailable [place] Unavailable Unavailable Problems date description facility Finding [facility] Ex-smoker (finding) [facility] 2020-05-28 00:00:00 Details of drug misuse behavior [facility] 2020-05-28 00:00:00 Alcohol use [facility] 2020-05-28 00:00:00 Exercise [facility] C 2020-05-28 00:00:00 Alcohol intake [facility] 2020-05-28 00:00:00 Screening for malignant [facility] neoplasms of the cervix [facility] 2020-05-28 00:00:00 Encounter for screening for [facility] malignant neoplasm of cervix [facility] 2020-05-28 00:00:00 Former smoker [facility] C 2020-05-28 00:00:00 Screening for malignant [facility] neoplasm of cervix [facility] 2020-05-28 00:00:00 Tobacco use and exposure [facility] 2020-05-28 00:00:00 THIN PREP PAP with HPV 30+YRS [facility] OLD C 2020-05-28 00:00:00 Polyp of corpus uteri [facility] 2020-05-28 00:00:00 Health-related behavior [facility] C 2020-05-29 14:44 Urinary tract infection, [facility] 2020-05-29 15:00 Urinary tract infection, site [facility] 2020-06-05 13:21 [facility] 2020-06-05 13:21 SPONDYLOSIS W/O MYELOPATHY OR [facility] RADICULOPATHY, LUMBAR REGION 2020-06-05 13:21 [facility] 2020-06-20 00:00:00 Alcohol intake [facility] 2020-06-20 00:00:00 Tobacco use and exposure [facility] 2020-06-20 00:00:00 Alcohol use [facility] 2020-06-20 00:00:00 Exercise [facility] 2020-06-20 00:00:00 Health-related behavior [facility] 2020-06-20 00:00:00 [facility] 2020-06-20 00:00:00 Former smoker [facility] 2020-06-28 10:35 [facility]TERI [facility] 2020-07-09 00:00:00 Former smoker [facility] 2020-07-09 00:00:00 Health-related behavior [facility] 2020-07-09 00:00:00 Tobacco use and exposure [facility] 2020-07-09 00:00:00 Alcohol use [facility] 2020-07-09 00:00:00 Alcohol intake [facility] 2020-07-09 00:00:00 Exercise [facility] 2020-07-09 00:00:00 Details of drug misuse behavior [facility] 2020-07-25 00:00:00 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 2020-07-25 00:00:00 [facility] 2020-07-25 00:00:00 Other herpesviral infection [facility] 2020-08-08 00:00:00 Family history of unspecified [facility] malignant neoplasm 2020-08-08 00:00:00 Family history of malignant [facility] neoplasm, unspecified 2020-08-08 00:00:00 [facility] 2020-08-08 00:00:00 [facility]related behavior [facility] 2020-08-08 00:00:00 Tobacco [facility] and [facility] 2020-08-08 [facility]00[facility] 2020-08-08 00:00:00 [facility] history of [facility] 2020-08-08 00:00:00 Details of drug misuse behavior [facility] 2020-08-08 00:00:00 [facility] 2020-08-08 00:00:00 [facility] Allergies date description [facility] ISOSORBIDE MONONITRATE [facility] LISINOPRIL [facility] DULOXETINE [facility] No Known Drug Allergies [facility] ADHESIVE \T\ TAPE [facility] AMOXICILLIN [facility] GABAPENTIN [facility] MEPERIDINE [facility] PENICILLIN [facility] TOPIRAMATE [facility] HYDROCODONE-IBUPROFEN [facility] PENICILLINS [facility] SULFA ANTIBIOTICS [facility] NO KNOWN ALLERGIES [facility] NO KNOWN ALLERGIES [facility] hydrocodone bitartrate * [facility] acetaminophen [facility] clindamycin [facility]ide [facility] Medications date description facility 2020-07-25 00:00:00 null [facility] 2020-07-25 00:00:00 null [facility] 2020-07-25 00:00:00 VALACYCLOVIR HCL [facility] 2020-07-25 00:00:00 VALACYCLOVIR HCL [facility] 2020-07-25 00:00:00 [facility] 2020-07-25 00:00:00 null [facility] 2020-07-25 00:00:00 [facility] 2020-07-25 00:00:00 [facility]OVIR [facility] 2020-08-08 00:00:00 [facility] 2020[facility] 2020-08-08 00:00:00 NA SULFATE-K [facility]ATE[facility]MG [facility] 2020-08-08 00:00:00 NA SULFATE-K SULFATE-MG SULF [facility] Procedures date description facility 2020-05-29 00:00:00 [facility] date description facility 2020-05-29 00:00:00 [facility] date description facility 2020-05-29 00:00:00 [facility] date description facility 2020-05-29 00:00:00 [facility] date description facility 2020-05-29 00:00:00 [facility] date description facility 2020-06-27 00:00:00 [facility] date description facility 2020-06-27 00:00:00 [facility] date description facility 2020-06-27 00:00:00 [facility] date description facility 2020-06-27 00:00:00 [facility] Results Social History date description facility [id number] Ex-smoker (finding) [facility] date description facility 2020-05-28 00:00:00 Former smoker [facility] date description facility 2020-06-20 00:00:00 Former smoker [facility] date description facility 2020-07-09 00:00:00 Former smoker [facility] date description facility 2020-08-08 00:00:00 Former smoker [facility] Social History date description facility [phone] Ex-smoker ([facility] date description facility 2020-05-28 00:00:00 Former smoker [facility] date description facility 2020-06-20 00:00:00 Former smoker [facility] date description facility 2020-07-09 00:00:00 Former smoker [facility] date description facility 2020-08-08 00:00:00 Former smoker [facility] date description facility [id number]
== END 2020-08-16 13:18 | disposition home or self-care (01) ==
LOC: LAB 13:17
PROVIDERS: ATTEND Surgery
DX: Z01.812 Encounter for preprocedural laboratory examination (principal); Z80.0 Family history of malignant neoplasm of digestive organs; Z20.822 Contact with and (suspected) exposure to COVID-19

== ENCOUNTER 2020-08-20 07:51 | Day surgery (SDC) | payer MEDICARE, OTHER ==
[2020-08-20] MEDS ORDERED: LIDO GARGLE 30 ML BOTTLE ONE (10:00)
[2020-08-20] MEDS ORDERED: fentaNYL 250 MCG/5 ML VIAL ONE (10:08)
[2020-08-20] MEDS ORDERED: MIDAZOLAM 2 MG/2 ML VIAL ONE ×3 (10:08→10:41)
[2020-08-20] MEDS ORDERED: BENZOCAINE/TETRACAINE/BUTAMBEN 20 GM TOP ONE (10:20)
[2020-08-20] MEDS ORDERED: LIDO GARGLE 30 ML BOTTLE PO ONE (10:20)
[2020-08-20] MEDS ORDERED: PROPOFOL 200 MG/20 ML VIAL IVP ONE (10:59)
[2020-08-20] MEDS ORDERED: LACTATED RINGERS 1,000 ML IV ONE (11:12)
[2020-08-20 11:37] VITALS: BP 119/99
--- NOTE | 2020-08-20 11:38 | ANESTHESIA POST OP EVALUATION ---
Anesthesia Post Eval - Post Anesthesia Eval Vitals: Last Vital Signs Temp 36.7 C 08/20/20 11:20 Pulse 80 08/20/20 11:34 Resp 20 08/20/20 11:34 BP 119/99 H 08/20/20 11:34 Pulse Ox 95 08/20/20 11:34 CV Function Including HR & BP: positive: Stable Pain Control: positive: Satisfactory Nausea & Vomiting: positive: Negative Mental Status: positive: Baseline Respiratory Status: Airway Patent Hydration Status: Satisfactory Anesthesia Complications: positive: None
== END 2020-08-20 07:52 | disposition home or self-care (01) ==
LOC: SDS 07:51
PROVIDERS: ATTEND Surgery
PROC: 0DB68ZX Excision of Stomach, Via Natural or Artificial Opening Endoscopic, Diagnostic (ICD-10-PCS; 2020-08-20)
PROC: 0DB48ZX Excision of Esophagogastric Junction, Via Natural or Artificial Opening Endoscopic, Diagnostic (ICD-10-PCS; 2020-08-20)
PROC: 0DB78ZX Excision of Stomach, Pylorus, Via Natural or Artificial Opening Endoscopic, Diagnostic (ICD-10-PCS; 2020-08-20)
PROC: 0DJD8ZZ Inspection of Lower Intestinal Tract, Via Natural or Artificial Opening Endoscopic (ICD-10-PCS; principal; 2020-08-20 09:15)
PROC: 0DB98ZX Excision of Duodenum, Via Natural or Artificial Opening Endoscopic, Diagnostic (ICD-10-PCS; 2020-08-20 09:15)
DX: Z12.11 Encounter for screening for malignant neoplasm of colon (principal); I10 Essential (primary) hypertension; K44.9 Diaphragmatic hernia without obstruction or gangrene; K29.70 Gastritis, unspecified, without bleeding; R13.10 Dysphagia, unspecified; Z87.891 Personal history of nicotine dependence; Z80.0 Family history of malignant neoplasm of digestive organs
CPT/HCPCS: 43239; A9270; G0121; J3010; J7120

== ENCOUNTER 2020-08-28 08:00 | Outpatient (CLI) | payer MEDICARE, OTHER ==
[2020-08-28 18:45] LABS: BASOPHILS % (AUTO) 0.2 %; EOSINOPHILS # (AUTO) 0.1 10^3/uL (0.0-0.7); HGB - HEMOGLOBIN 13.3 g/dL (12.0-16.0); LYMPHOCYTES # (AUTO) 1.3 10^3/uL (1.5-3.5); LYMPHOCYTES % (AUTO) 27.2 %; MEAN CORPUSCULAR HEMOGLOBIN 32.7 pg (27.0-31.0); MEAN CORPUSCULAR HGB CONC 34.2 g/dL (32.0-36.0); MEAN CORPUSCULAR VOLUME 95.6 fL (81.0-99.0); MEAN PLATELET VOLUME 10.8 fL (7.9-10.8); MONOCYTES # (AUTO) 0.5 10^3/uL (0.0-1.0); MONOCYTES % (AUTO) 10.6 %; NEUTROPHILS # (AUTO) 2.9 10^3/uL (1.5-6.6); NEUTROPHILS % (AUTO) 60.6 %; PLT - PLATELET COUNT 325 10^3/uL (130-450); RED BLOOD COUNT 4.07 10^6/uL (4.20-5.40); RED CELL DISTRIBUTION WIDTH 13.1 % (12.0-15.0); WHITE BLOOD COUNT 4.8 x10^3/uL (4.8-10.8)
[2020-08-28 18:50] LABS: BILIRUBIN,URINE NEGATIVE (NEGATIVE); GLUCOSE, URINE (UA) NEGATIVE (NEGATIVE); KETONES,URINE (UA) TRACE mg/dL (NEGATIVE); LEUKOCYTE ESTERASE, URINE NEGATIVE (NEGATIVE); NITRITE,URINE NEGATIVE (NEGATIVE); OCCULT BLOOD,URINE NEGATIVE (NEGATIVE); PROTEIN,URINE TRACE mg/dL (NEGATIVE); UROBILINOGEN,URINE 0.2 (NORMAL) E.U./dL (NORMAL)
[2020-08-28 19:05] LABS: CLARITY,URINE CLEAR (CLEAR); RBC,URINE None Seen /HPF (0-5); SQUAMOUS EPITHELIAL CELL,UR NONE SEEN (<= Few)
[2020-08-28 19:06] LABS: BACTERIA,URINE None Seen /HPF (None Seen); CASTS, URINE 6-10 Hyaline Casts /LPF; CRYSTALS,URINE 6-10 Calcium Oxalate /LPF; MUCUS,URINE Moderate Strands
[2020-08-28 19:34] LABS: CREATININE 0.7 mg/dL (0.4-1.0)
[2020-08-30 11:21] LABS: COMPLEMENT COMPONENT C3C 130 mg/dL (83-193); COMPLEMENT COMPONENT C4C 14 mg/dL (15-57)
== END 2020-08-28 23:59 ==
LOC: LAB.WCP 08:00
PROVIDERS: ATTEND Internal Medicine Rheumatology
DX: M25.50 Pain in unspecified joint (principal); R76.8 Other specified abnormal immunological findings in serum
CPT/HCPCS: 36415; 81001; 82565; 84520; 85025; 85651; 86160

== ENCOUNTER 2021-02-21 08:00 | Outpatient (CLI) | payer MEDICARE, OTHER ==
--- NOTE | 2021-02-21 16:57 | XRAY Report ---
PROCEDURE: Toe(s) LT INDICATIONS: LEFT FOOT/5TH DIGIT TOE PAIN TECHNIQUE: 3 views of the left fifth toe(s) acquired. COMPARISON: None FINDINGS: Bones: Mildly displaced base of proximal phalanx of small toe fracture which may not extend to the ar ticular surface. No other fractures or dislocations. No suspicious bony lesions. Soft tissues: No suspicious soft tissue densities. IMPRESSION: Mildly displaced base of proximal phalanx of small toe fracture. Reviewed by: Aidan Latif MD on 02/21/2021 4:56 PM PDT Approved by: Aidan Latif MD on 02/21/2021 4:56 PM PDT Station ID: [id number]
== END 2021-02-21 23:59 | disposition home or self-care (01) ==
LOC: DI.S 08:00
PROVIDERS: ATTEND Physician Assistant
DX: S92.512A Displaced fracture of proximal phalanx of left lesser toe(s), initial encounter for closed fracture (principal)
CPT/HCPCS: 73660

== ENCOUNTER 2021-03-27 13:14 | Outpatient (CLI) | payer MEDICARE, OTHER ==
[2021-03-27 13:43] LABS: BILIRUBIN,URINE NEGATIVE (NEGATIVE); GLUCOSE, URINE (UA) NEGATIVE (NEGATIVE); KETONES,URINE (UA) NEGATIVE (NEGATIVE); LEUKOCYTE ESTERASE, URINE NEGATIVE (NEGATIVE); NITRITE,URINE NEGATIVE (NEGATIVE); OCCULT BLOOD,URINE NEGATIVE (NEGATIVE); PROTEIN,URINE NEGATIVE (NEGATIVE); UROBILINOGEN,URINE 0.2 (NORMAL) E.U./dL (NORMAL)
[2021-03-27 13:44] LABS: BASOPHILS % (AUTO) 0.2 %; EOSINOPHILS % (AUTO) 0.7 %; HCT - HEMATOCRIT 37.4 % (37.0-47.0); LYMPHOCYTES # (AUTO) 0.9 10^3/uL (1.5-3.5); LYMPHOCYTES % (AUTO) 19.9 %; MEAN CORPUSCULAR HEMOGLOBIN 32.7 pg (27.0-31.0); MEAN CORPUSCULAR HGB CONC 34.8 g/dL (32.0-36.0); MEAN CORPUSCULAR VOLUME 94.2 fL (81.0-99.0); MEAN PLATELET VOLUME 10.3 fL (7.9-10.8); MONOCYTES # (AUTO) 0.3 10^3/uL (0.0-1.0); MONOCYTES % (AUTO) 7.2 %; NEUTROPHILS # (AUTO) 3.2 10^3/uL (1.5-6.6); NEUTROPHILS % (AUTO) 71.8 %; PLT - PLATELET COUNT 205 10^3/uL (130-450); RED BLOOD COUNT 3.97 10^6/uL (4.20-5.40); RED CELL DISTRIBUTION WIDTH 12.1 % (12.0-15.0); WHITE BLOOD COUNT 4.4 x10^3/uL (4.8-10.8)
[2021-03-27 13:45] LABS: CLARITY,URINE CLEAR (CLEAR)
[2021-03-27 13:53] LABS: CALCIUM 9.4 mg/dL (8.5-10.3); CREATININE 0.7 mg/dL (0.4-1.0); POTASSIUM 3.5 mmol/L (3.5-5.0)
[2021-03-27 13:56] LABS: BACTERIA,URINE Rare /HPF (None Seen); RBC,URINE 0-5 /HPF (0-5); SQUAMOUS EPITHELIAL CELL,UR NONE SEEN (<= Few); WBC,URINE 0-3 /HPF (0-5)
[2021-03-29 10:21] LABS: COMPLEMENT COMPONENT C3C 102 mg/dL (83-193); COMPLEMENT COMPONENT C4C 11 mg/dL (15-57)
== END 2021-03-27 13:15 | disposition home or self-care (01) ==
LOC: LAB 13:14
PROVIDERS: ATTEND Internal Medicine Rheumatology
DX: R76.8 Other specified abnormal immunological findings in serum (principal); M25.50 Pain in unspecified joint
CPT/HCPCS: 36415; 80048; 81001; 85025; 85651; 86160

== ENCOUNTER 2021-09-22 10:56 | Outpatient (CLI) | payer MEDICARE, OTHER ==
--- NOTE | 2021-09-22 11:49 | DEXA Report ---
PROCEDURE: Dexa Spine and/or Hip INDICATIONS: MENOPAUSE TECHNIQUE: Dual energy x-ray absorptiometry (DXA) was performed on a [employer] System. Regions measur ed are the AP Spine, femoral neck, and if needed forearm. COMPARISON: None. FINDINGS: L1 BMD: 1.086 L1 TScore: -0.4 L1 ZScore: 1.0 Lumbar Spine: Bone Mineral Density 1.162 g/cm/cm,T score -0.1, normal bone mineral density Left Hip: Bone Mineral Density 0.891 g/cm/cm,T score -0.9, normal bone mineral density Left Femoral Neck: Bone Mineral Density 0.8 x 4 g/cm/cm, T score -1.3, osteopenia (T score greater or equal to -1.0: NORMAL) (T score from -1.1 to -2.4: OSTEOPENIA) (T score less than or equal to -2.5 to: OSTEOPOROSIS) Impression: OSTEOPENIA. Patient is at increased risk for fracture. Patients with diagnosis of osteoporosis or osteopenia should have regular bone mineral density assess ment. For those eligible for Medicare, routine testing is allowed once every 2 years. Testing frequ ency can be increased for patients who have rapidly progressing disease or for those who are receivin g medical therapy to restore bone mass. Reviewed by: Augustine Norton MD on 09/22/2021 11:48 AM PST Approved by: Augustine Norton MD on 09/22/2021 11:48 AM PST Station ID: [id number]
== END 2021-09-22 10:57 | disposition home or self-care (01) ==
LOC: DI 10:56
PROVIDERS: ATTEND Obstetrics & Gynecology
DX: Z78.0 Asymptomatic menopausal state (principal); M85.88 Other specified disorders of bone density and structure, other site; Z00.00 Encounter for general adult medical examination without abnormal findings; Z13.1 Encounter for screening for diabetes mellitus; Z13.29 Encounter for screening for other suspected endocrine disorder; Z13.220 Encounter for screening for lipoid disorders; Z13.21 Encounter for screening for nutritional disorder
CPT/HCPCS: 36415; 80053; 80061; 82306; 83036; 83721; 84443; 85027

== ENCOUNTER 2021-09-22 11:20 | Outpatient (CLI) | payer MEDICARE, OTHER ==
[2021-09-22 11:56] LABS: HCT - HEMATOCRIT 42.4 % (37.0-47.0); HGB - HEMOGLOBIN 14.1 g/dL (12.0-16.0); MEAN CORPUSCULAR HEMOGLOBIN 31.5 pg (27.0-31.0); MEAN CORPUSCULAR HGB CONC 33.3 g/dL (32.0-36.0); MEAN CORPUSCULAR VOLUME 94.9 fL (81.0-99.0); MEAN PLATELET VOLUME 10.5 fL (7.9-10.8); RED BLOOD COUNT 4.47 10^6/uL (4.20-5.40); RED CELL DISTRIBUTION WIDTH 11.9 % (12.0-15.0); WHITE BLOOD COUNT 3.7 x10^3/uL (4.8-10.8)
[2021-09-22 12:25] LABS: THYROID STIMULATING HORMONE 1.28 uIU/mL (0.34-5.60)
[2021-09-22 12:30] LABS: ESTIMATED AVERAGE GLUCOSE 105 mg/dL (70-100); HEMOGLOBIN A1c% 5.3 % (4.27-6.07)
[2021-09-22 12:52] LABS: ALBUMIN 4.6 g/dL (3.2-5.5); ALBUMIN/GLOBULIN RATIO 1.6 (1.0-2.2); ALKALINE PHOSPHATASE 52 IU/L (42-121); ALT ALANINE AMINOTRANSFERASE 27 IU/L (10-60); AST ASPARTATE AMINOTRANSFERASE 27 IU/L (10-42); BILIRUBIN,TOTAL 0.8 mg/dL (0.2-1.0); BUN - BLOOD UREA NITROGEN 18 mg/dL (6-20); CALCIUM 8.9 mg/dL (8.5-10.3); CARBON DIOXIDE - CO2 28 mmol/L (21-32); CHLORIDE 99 mmol/L (101-111); CHOL/HDL RATIO 2.8 (<4.4); CHOLESTEROL 167 mg/dL; CREATININE 0.8 mg/dL (0.4-1.0); GFR - MDRD 71 (>89); GLUCOSE 89 mg/dL (70-100); HDL CHOLESTEROL 59 mg/dL; LDL CHOLESTEROL,CALCULATED 67 mg/dL; LDL/HDL RATIO 1.1 (<4.4); SODIUM 136 mmol/L (135-145); TOTAL PROTEIN 7.5 g/dL (6.7-8.2); TRIGLYCERIDES 203 mg/dL; VLDL CHOLESTEROL 41 mg/dL
== END 2021-09-22 11:21 | disposition home or self-care (01) ==
LOC: LAB 11:20
PROVIDERS: ATTEND Obstetrics & Gynecology
DX: Z00.00 Encounter for general adult medical examination without abnormal findings (principal); Z13.1 Encounter for screening for diabetes mellitus; Z13.29 Encounter for screening for other suspected endocrine disorder; Z13.220 Encounter for screening for lipoid disorders; Z13.21 Encounter for screening for nutritional disorder
CPT/HCPCS: 36415; 80053; 80061; 82306; 83036; 83721; 84443; 85027

== ENCOUNTER 2021-12-17 10:31 | Outpatient (CLI) | payer MEDICARE, OTHER ==
--- NOTE | 2021-12-17 14:36 | Mammography Report ---
BILATERAL DIGITAL SCREENING MAMMOGRAM 3D/2D: 12/17/2021 CLINICAL: Routine screening. Comparison is made to exams dated: 08/11/2017 mammogram, 05/18/2014 mammogram, and 05/15/2013 mammogram - [facility]. The tissue of both breasts is heterogeneously dense. This may lower the sensitivity of mammography. No significant masses, calcifications, or other findings are seen in either breast. There has been no significant interval change. IMPRESSION: NEGATIVE There is no mammographic evidence of malignancy. A 1 year screening mammogram is recommended. This exam was interpreted at Station ID: [id number]. NOTE: For mammograms, a report in lay terms will be sent to the patient. Approximately 15% of breast malignancies will not be visualized mammographically. In the management of a palpable breast mass, a negative mammogram must not discourage biopsy of a clinically suspicious lesion. Electronically Signed By: Maricarmen agosto/tiffanierad:12/17/2021 12:45:20 ACR BI-RADS Category 1: Negative 3341F PARENCHYMAL PATTERN: (D) - The breast(s) demonstrate(s) heterogeneously dense fibroglandular cuco rivas. BI-RADS CATEGORY: (1) - 1 RECOMMENDATION: (ANNUAL) - Recommend routine annual screening mammography. [id number] 1 year screening LATERALITY: (B)
== END 2021-12-17 10:32 | disposition home or self-care (01) ==
LOC: DI.S 10:31
PROVIDERS: ATTEND Obstetrics & Gynecology
DX: Z12.31 Encounter for screening mammogram for malignant neoplasm of breast (principal)

== ENCOUNTER 2021-12-17 10:34 | Outpatient (CLI) | payer MEDICARE, OTHER ==
[2021-12-17 14:50] LABS: ALBUMIN 4.4 g/dL (3.2-5.5); ALBUMIN/GLOBULIN RATIO 1.5 (1.0-2.2); BILIRUBIN,TOTAL 0.7 mg/dL (0.2-1.0); CALCIUM 9.2 mg/dL (8.5-10.3); CREATININE 0.7 mg/dL (0.4-1.0); TOTAL PROTEIN 7.4 g/dL (6.7-8.2)
[2021-12-17 15:00] LABS: THYROID STIMULATING HORMONE 2.31 uIU/mL (0.34-5.60)
[2021-12-17 15:03] LABS: BASOPHILS % (AUTO) 0.3 %; EOSINOPHILS # (AUTO) 0.1 10^3/uL (0.0-0.7); EOSINOPHILS % (AUTO) 1.3 %; HGB - HEMOGLOBIN 13.8 g/dL (12.0-16.0); LYMPHOCYTES # (AUTO) 0.8 10^3/uL (1.5-3.5); LYMPHOCYTES % (AUTO) 20.2 %; MEAN CORPUSCULAR HEMOGLOBIN 34.5 pg (27.0-31.0); MEAN CORPUSCULAR HGB CONC 36.3 g/dL (32.0-36.0); MEAN PLATELET VOLUME 11.7 fL (7.9-10.8); MONOCYTES # (AUTO) 0.4 10^3/uL (0.0-1.0); MONOCYTES % (AUTO) 10.1 %; NEUTROPHILS # (AUTO) 2.7 10^3/uL (1.5-6.6); NEUTROPHILS % (AUTO) 67.8 %; PLT - PLATELET COUNT 229 10^3/uL (130-450); RED CELL DISTRIBUTION WIDTH 12.3 % (12.0-15.0)
== END 2021-12-17 10:35 | disposition home or self-care (01) ==
LOC: LAB.S 10:34
PROVIDERS: ATTEND Nurse Practitioner Family
DX: E78.2 Mixed hyperlipidemia (principal); R53.81 Other malaise; R53.83 Other fatigue; R14.3 Flatulence
CPT/HCPCS: 36415; 80053; 80061; 81599; 84443; 85025

== ENCOUNTER 2022-05-12 08:00 | Outpatient (CLI) | payer MEDICARE, OTHER ==
[2022-05-12 22:21] LABS: BACTERIAL VAGINOSIS DNA NEGATIVE (NEGATIVE); CANDIDA GLABRATA DNA NEGATIVE (NEGATIVE); CANDIDA GROUP DNA NEGATIVE (NEGATIVE); CANDIDA KRUSEI DNA NEGATIVE (NEGATIVE); TRICHOMONAS VAGINALIS DNA NEGATIVE (NEGATIVE)
== END 2022-05-12 23:59 | disposition home or self-care (01) ==
LOC: LAB.S 08:00
PROVIDERS: ATTEND Physician Assistant Medical
DX: R30.0 Dysuria (principal); N76.0 Acute vaginitis
CPT/HCPCS: 81514; 87086; 87181

== ENCOUNTER 2022-08-31 13:53 | Outpatient (CLI) | payer MEDICARE, OTHER ==
[2022-09-08 16:08] LABS: HSV 2 IGG SUPPLEMENTAL TEST Positive (Negative); HSV 2 IGG TYPE SPEC 4.58 index (0.00-0.90)
== END 2022-08-31 13:54 | disposition home or self-care (01) ==
LOC: LAB.S 13:53
PROVIDERS: ATTEND Registered Nurse
DX: N76.0 Acute vaginitis (principal); N76.89 Other specified inflammation of vagina and vulva; R10.2 Pelvic and perineal pain; R30.0 Dysuria
CPT/HCPCS: 81599; 86695; 86696; 87086

== ENCOUNTER 2023-02-01 09:50 | Outpatient (CLI) | payer MEDICARE, OTHER ==
--- NOTE | 2023-02-02 08:54 | Mammography Report ---
BILATERAL DIGITAL SCREENING MAMMOGRAM 3D/2D WITH EXAGGERATED CC: 02/01/2023 CLINICAL: Routine screening. Comparison is made to exams dated: 12/17/2021 [facility] Both breasts are heterogeneously dense, which may obscure small masses (category c / 51-75% glandular tissue). No significant masses, calcifications, or other findings are seen in either breast. There has been no significant interval change. IMPRESSION: NEGATIVE There is no mammographic evidence of malignancy. A 1 year screening mammogram is recommended. Based on the Tyrer Cuzick model (a risk assessment model) the patients lifetime risk is 7.3% and her 10 year risk is 5.0%. According to the ACR, ACS, and NCCN guidelines, an annual breast MRI exam kaushal g with mammogram is recommended if the patients lifetime risk is 20% or greater. This exam was interpreted at Station ID: [id number]. NOTE: For mammograms, a report in lay terms will be sent to the patient. Approximately 15% of breast malignancies will not be visualized mammographically. In the management of a palpable breast mass, a negative mammogram must not discourage biopsy of a clinically suspicious lesion. Electronically Signed By: Augustine langley/garcia:02/01/2023 11:24:42 letter sent: No_Letter ACR BI-RADS Category 1: Negative 3341F PARENCHYMAL PATTERN: (D) - The breast(s) demonstrate(s) heterogeneously dense fibroglandular cuco rivas. BI-RADS CATEGORY: (1) - 1 Mammogram [id number] 1 year screening LATERALITY: (B)
== END 2023-02-01 09:51 | disposition home or self-care (01) ==
LOC: DI.S 09:50
DX: Z12.31 Encounter for screening mammogram for malignant neoplasm of breast (principal)

== ENCOUNTER 2023-03-03 08:43 | Outpatient (CLI) | payer MEDICARE, OTHER ==
[2023-03-03 15:05] LABS: BASOPHILS % (AUTO) 0.2 %; EOSINOPHILS % (AUTO) 0.7 %; HCT - HEMATOCRIT 40.5 % (37.0-47.0); HGB - HEMOGLOBIN 13.8 g/dL (12.0-16.0); LYMPHOCYTES # (AUTO) 0.8 10^3/uL (1.5-3.5); LYMPHOCYTES % (AUTO) 14.3 %; MEAN CORPUSCULAR HEMOGLOBIN 34.2 pg (27.0-31.0); MEAN CORPUSCULAR HGB CONC 34.1 g/dL (32.0-36.0); MEAN CORPUSCULAR VOLUME 100.2 fL (81.0-99.0); MONOCYTES # (AUTO) 0.4 10^3/uL (0.0-1.0); MONOCYTES % (AUTO) 7.3 %; NEUTROPHILS # (AUTO) 4.5 10^3/uL (1.5-6.6); NEUTROPHILS % (AUTO) 77.3 %; PLT - PLATELET COUNT 210 10^3/uL (130-450); RED BLOOD COUNT 4.04 10^6/uL (4.20-5.40); RED CELL DISTRIBUTION WIDTH 12.7 % (12.0-15.0); WHITE BLOOD COUNT 5.8 x10^3/uL (4.8-10.8)
[2023-03-03 15:17] LABS: BILIRUBIN,URINE NEGATIVE (NEGATIVE); GLUCOSE, URINE (UA) NEGATIVE (NEGATIVE); KETONES,URINE (UA) NEGATIVE (NEGATIVE); LEUKOCYTE ESTERASE, URINE NEGATIVE (NEGATIVE); NITRITE,URINE NEGATIVE (NEGATIVE); OCCULT BLOOD,URINE NEGATIVE (NEGATIVE); PH,URINE 6.5 PH (5.0-7.5); PROTEIN,URINE TRACE mg/dL (NEGATIVE); UROBILINOGEN,URINE 0.2 (NORMAL) E.U./dL (NORMAL)
[2023-03-03 15:18] LABS: CLARITY,URINE CLEAR (CLEAR)
[2023-03-03 15:25] LABS: ALBUMIN 4.5 g/dL (3.2-5.5); ALBUMIN/GLOBULIN RATIO 1.5 (1.0-2.2); BILIRUBIN,TOTAL 0.5 mg/dL (0.2-1.0); CALCIUM 9.5 mg/dL (8.5-10.3); CREATININE 0.8 mg/dL (0.6-1.3); POTASSIUM 4.1 mmol/L (3.5-4.5); TOTAL PROTEIN 7.5 g/dL (6.4-8.9)
[2023-03-03 15:33] LABS: PROTEIN/CREATININE RATIO,URINE 0.1 (<=0.2)
[2023-03-03 15:38] LABS: BACTERIA,URINE Rare /HPF (None Seen); RBC,URINE 0-5 /HPF (0-5); SQUAMOUS EPITHELIAL CELL,UR RARE Squamous (<= Few); WBC,URINE 0-3 /HPF (0-5)
[2023-03-04 05:34] LABS: COMPLEMENT C3 119 mg/dL (82-167); COMPLEMENT C4 13 mg/dL (12-38)
== END 2023-03-03 08:44 | disposition home or self-care (01) ==
LOC: LAB.S 08:43
PROVIDERS: ATTEND Internal Medicine Rheumatology
DX: R76.8 Other specified abnormal immunological findings in serum (principal); M25.50 Pain in unspecified joint
CPT/HCPCS: 36415; 80053; 81001; 82570; 84156; 85025; 85651; 86160; 86225; 87086

== ENCOUNTER 2023-06-02 09:59 | Outpatient (CLI) | payer MEDICARE, OTHER ==
--- NOTE | 2023-06-02 12:37 | XRAY Report ---
PROCEDURE: Shoulder 2 View LT INDICATIONS: LEFT SHOULDER IMPINGEMENT SYNDROME TECHNIQUE: 2 views of the shoulder were acquired. COMPARISON: None. FINDINGS: Bones: No fractures or dislocations. No suspicious bony lesions. Visualized ribs appear intact. Soft tissues: No suspicious soft tissue calcifications. The visualized lungs are within normal limi ts. IMPRESSION: No acute bony abnormality. Reviewed by: Leonard An on 06/02/2023 12:36 PM PDT Approved by: Leonard An on 06/02/2023 12:36 PM PDT Station ID: [id number]
== END 2023-06-02 23:59 | disposition home or self-care (01) ==
LOC: DI.S 09:59
PROVIDERS: ATTEND Physician Assistant
DX: M75.42 Impingement syndrome of left shoulder (principal)

== ENCOUNTER 2023-10-11 08:00 | Outpatient (CLI) | payer MEDICARE, OTHER ==
[2023-10-11 17:04] LABS: BILIRUBIN,URINE NEGATIVE (NEGATIVE); GLUCOSE, URINE (UA) NEGATIVE (NEGATIVE); KETONES,URINE (UA) NEGATIVE (NEGATIVE); LEUKOCYTE ESTERASE, URINE TRACE (NEGATIVE); NITRITE,URINE NEGATIVE (NEGATIVE); OCCULT BLOOD,URINE NEGATIVE (NEGATIVE); PROTEIN,URINE NEGATIVE (NEGATIVE); UROBILINOGEN,URINE 0.2 (NORMAL) E.U./dL (NORMAL)
[2023-10-11 17:19] LABS: BACTERIA,URINE None Seen /HPF (None Seen); CLARITY,URINE HAZY (CLEAR); RBC,URINE 0-5 /HPF (0-5); SQUAMOUS EPITHELIAL CELL,UR NONE SEEN (<= Few); WBC,URINE 0-3 /HPF (0-5)
[2023-10-11 23:03] LABS: CHLAMYDIA TRACHOMATIS DNA NEGATIVE (NEGATIVE); NEISSERIA GONORRHOEAE DNA NEGATIVE (NEGATIVE)
[2023-10-11 23:09] LABS: BACTERIAL VAGINOSIS DNA NEGATIVE (NEGATIVE); CANDIDA GLABRATA DNA NEGATIVE (NEGATIVE); CANDIDA GROUP DNA NEGATIVE (NEGATIVE); CANDIDA KRUSEI DNA NEGATIVE (NEGATIVE); TRICHOMONAS VAGINALIS DNA NEGATIVE (NEGATIVE)
== END 2023-10-11 23:59 | disposition home or self-care (01) ==
LOC: LAB.WC 08:00
PROVIDERS: ATTEND Nurse Practitioner
DX: R10.2 Pelvic and perineal pain (principal)
CPT/HCPCS: 81001; 81514; 81599; 87086; 87491; 87591; 87661

== ENCOUNTER 2023-10-11 08:00 | Outpatient (CLI) | payer MEDICARE, OTHER | END 2023-10-11 08:01 | disposition home or self-care (01) | LOC: LAB.WC 08:00 | PROVIDERS: ATTEND Nurse Practitioner | DX: R10.2 Pelvic and perineal pain (principal) | CPT/HCPCS: 81002 ==

== ENCOUNTER 2023-10-13 08:26 | Outpatient (CLI) | payer MEDICARE, OTHER ==
--- NOTE | 2023-10-13 09:27 | Ultrasound Report ---
PROCEDURE: Pelvic w/Transvaginal INDICATIONS: PELVIC PAIN TECHNIQUE: Real-time scanning was performed of the pelvic organs, with image documentation. Additional endovagi nal scanning was necessary due to incomplete visualization of the adnexal and endometrial structures by transabdominal scanning. COMPARISON: None. FINDINGS: Uterus: Uterus is anteverted and normal in size at 6.1 x 2.5 x 4.0 cm. The myometrium is homogeneou s. The endometrium measures 1 mm in combined thickness. Right posterior subserosal fibroid measurin g 22 mm. Left anterior subserosal fibroid measuring 14 mm. Ovaries: The right ovary is within normal limits with less than 12-like or cyst. Left ovary is not s een. Other: No pathologic free abdominal or pelvic fluid. IMPRESSION: 1. No acute process. 2. Uterine fibroids. 3. Nonvisualization of left ovary. Reviewed by: Kim Mcmahon MD on 10/13/2023 9:26 AM PST Approved by: Kim Mcmahon MD on 10/13/2023 9:26 AM PST Station ID: [id number]
== END 2023-10-13 08:27 | disposition home or self-care (01) ==
LOC: DI 08:26
PROVIDERS: ATTEND Nurse Practitioner
DX: R10.2 Pelvic and perineal pain (principal); D25.2 Subserosal leiomyoma of uterus

== ENCOUNTER 2023-10-26 13:28 | Outpatient (CLI) | payer MEDICARE, OTHER ==
[2023-10-26 20:09] LABS: CALCIUM 9.2 mg/dL (8.5-10.3); CREATININE 0.8 mg/dL (0.6-1.3); POTASSIUM 3.5 mmol/L (3.5-4.5)
== END 2023-10-26 13:29 | disposition home or self-care (01) ==
LOC: LAB.S 13:28
PROVIDERS: ATTEND Nurse Practitioner Family
DX: S34.9XXA Injury of unspecified nerves at abdomen, lower back and pelvis level, initial encounter (principal)
CPT/HCPCS: 36415; 80048

== ENCOUNTER 2023-10-26 13:32 | Outpatient (CLI) | payer MEDICARE, OTHER ==
--- NOTE | 2023-10-26 21:32 | XRAY Report ---
PROCEDURE: Pelvis 1-2V INDICATIONS: INJURY OF NERVE OF PELVIC GIRDLE TECHNIQUE: 1 view(s) of the pelvis acquired. COMPARISON: None. FINDINGS: Bones: No fractures or dislocations. No suspicious bony lesions. Soft tissues: Visualized bowel gas pattern is normal. No suspicious soft tissue calcifications. IMPRESSION: If there remains a high clinical concern for fracture, consider cross-sectional imaging now. If pain persists, consider repeat x-ray in 10-14 days or cross-sectional imaging. Reviewed by: Aidan Latif MD on 10/26/2023 9:31 PM PDT Approved by: Aidan Latif MD on 10/26/2023 9:31 PM PDT Station ID: [id number]
== END 2023-10-26 13:33 | disposition home or self-care (01) ==
LOC: DI.S 13:32
PROVIDERS: ATTEND Nurse Practitioner Family
DX: S34.9XXA Injury of unspecified nerves at abdomen, lower back and pelvis level, initial encounter (principal)

== ENCOUNTER 2023-10-29 08:18 | Outpatient (CLI) | payer MEDICARE, OTHER ==
[~2023-10-29 08:18] MED LIST changes: -ACETAMINOPHEN 1,000 MG/100 ML 100 ML IV ONE; -CEFAZOLIN SODIUM IN 0.9 % NACL 2 GM/100 ML BAG IV ONE; -CELECOXIB 100 MG CAPSULE PO ONE; -GABAPENTIN 400 MG CAPSULE ONE; +GADOTERATE MEGLUMINE 7.5 MMOL/15 ML VIAL ONE
[2023-10-29] MEDS: GADOTERATE MEGLUMINE 7.5 MMOL/15 ML VIAL IVP ONE (10:22)
--- NOTE | 2023-10-29 14:44 | MRI Report ---
KS PROCEDURE: Pelvis W/WO INDICATIONS: INJURY OF NERVE OF PELVIC GIRDLE CONTRAST: CLARISCAN 13.2 ML TECHNIQUE: Coronal ultra fast SE, sagittal T2 FSE, axial T1 FSE, axial and coronal nonbreath-hold T2 FSE. Axial dynamic ultra fast GE during administration of contrast. Post-contrast axial and coronal ultra fast GE / 2-D spoiled GE with fat saturation from the iliac crests to the symphysis. Optional diffusion weighted imaging and ADC may be performed. COMPARISON: Pelvic ultrasound dated 10/13/2023. Pelvic radiograph dated 10/26/2023. CT of abdomen and p cam dated 04/24/2020. FINDINGS: Image quality: Excellent. Bowel and peritoneum: No pathologic free pelvic fluid. Inferior colon and small bowel loops are nor mal in caliber. Ultrasound finding of uterine fibroids are again seen. Genitourinary system: Bladder wall is normal in thickness. Distal ureters are non distended. Nodes and vessels: No pathologic pelvic or inguinal adenopathy by size criteria. Iliac vessels are normal in caliber. Soft tissues: No inguinal hernias. Perineural cysts are noted at S2 level measures in aggregate 2.7 x 1.5 x 1.6 cm in size. Bones: There is no marrow edema. No acute fracture or dislocation. Likely remote injury involving pro ximal coccyx is seen with acute anterior angulation Bilateral hip joint osteoarthritic changes are se en. No evidence of avascular necrosis of femoral head. No sacral insufficiency fracture. Mild degener ative disc disease in visualized lower lumbar spine is seen. IMPRESSION: 1. No pelvic free fluid. No bowel obstruction or abnormal bowel wall thickening. Bladder wall thickne ss is normal. Uterine fibroids unchanged from previous ultrasound study. 2. Suggestion of perineural cysts at S2 level as above. 3. Bilateral hip joint osteoarthritis. No acute fracture or dislocation. No marrow edema. No evidence of avascular necrosis of femoral head. Old proximal coccygeal fracture is seen with chronic-appearin g deformity. Reviewed by: Teddy Acuña MD on 10/29/2023 2:42 PM PDT Approved by: Teddy Acuña MD on 10/29/2023 2:42 PM PDT Station ID: [id number]
== END 2023-10-29 08:19 | disposition home or self-care (01) ==
LOC: DI 08:18
PROVIDERS: ATTEND Nurse Practitioner Family
DX: S34.9XXA Injury of unspecified nerves at abdomen, lower back and pelvis level, initial encounter (principal); D25.9 Leiomyoma of uterus, unspecified; M16.0 Bilateral primary osteoarthritis of hip

== ENCOUNTER 2023-11-05 08:42 | Outpatient (CLI) | payer MEDICARE, OTHER ==
[2023-11-05 16:12] LABS: BASOPHILS % (AUTO) 0.2 %; EOSINOPHILS # (AUTO) 0.1 10^3/uL (0.0-0.7); EOSINOPHILS % (AUTO) 1.4 %; HCT - HEMATOCRIT 40.1 % (37.0-47.0); HGB - HEMOGLOBIN 13.6 g/dL (12.0-16.0); LYMPHOCYTES # (AUTO) 0.9 10^3/uL (1.5-3.5); LYMPHOCYTES % (AUTO) 22.5 %; MEAN CORPUSCULAR HEMOGLOBIN 33.7 pg (27.0-31.0); MEAN CORPUSCULAR HGB CONC 33.9 g/dL (32.0-36.0); MEAN CORPUSCULAR VOLUME 99.5 fL (81.0-99.0); MEAN PLATELET VOLUME 11.7 fL (7.9-10.8); MONOCYTES # (AUTO) 0.3 10^3/uL (0.0-1.0); NEUTROPHILS # (AUTO) 2.8 10^3/uL (1.5-6.6); NEUTROPHILS % (AUTO) 68.7 %; PLT - PLATELET COUNT 251 10^3/uL (130-450); RED BLOOD COUNT 4.03 10^6/uL (4.20-5.40); RED CELL DISTRIBUTION WIDTH 12.4 % (12.0-15.0); WHITE BLOOD COUNT 4.1 x10^3/uL (4.8-10.8)
[2023-11-05 16:57] LABS: BILIRUBIN,URINE NEGATIVE (NEGATIVE); GLUCOSE, URINE (UA) NEGATIVE (NEGATIVE); KETONES,URINE (UA) NEGATIVE (NEGATIVE); LEUKOCYTE ESTERASE, URINE NEGATIVE (NEGATIVE); NITRITE,URINE NEGATIVE (NEGATIVE); OCCULT BLOOD,URINE NEGATIVE (NEGATIVE); PROTEIN,URINE NEGATIVE (NEGATIVE); UROBILINOGEN,URINE 0.2 (NORMAL) E.U./dL (NORMAL)
[2023-11-05 17:11] LABS: ALBUMIN 4.4 g/dL (3.2-5.5); ALBUMIN/GLOBULIN RATIO 1.8 (1.0-2.2); ALKALINE PHOSPHATASE 57 IU/L (42-121); ALT ALANINE AMINOTRANSFERASE 36 IU/L (10-60); AST ASPARTATE AMINOTRANSFERASE 34 IU/L (10-42); BILIRUBIN,TOTAL 0.6 mg/dL (0.2-1.0); BUN - BLOOD UREA NITROGEN 10 mg/dL (6-20); CALCIUM 9.6 mg/dL (8.5-10.3); CARBON DIOXIDE - CO2 30 mmol/L (21-32); CHLORIDE 100 mmol/L (101-111); CREATININE 0.7 mg/dL (0.6-1.3); CRP - C-REACTIVE PROTEIN < 0.5 mg/dL (<0.5); GFR - MDRD 82 (>89); GLUCOSE 106 mg/dL (74-104); POTASSIUM 3.9 mmol/L (3.5-4.5); SODIUM 137 mmol/L (135-145); TOTAL PROTEIN 6.8 g/dL (6.4-8.9)
[2023-11-05 17:12] LABS: BACTERIA,URINE None Seen /HPF (None Seen); CLARITY,URINE CLEAR (CLEAR); RBC,URINE 0-5 /HPF (0-5); SQUAMOUS EPITHELIAL CELL,UR RARE Squamous (<= Few); WBC,URINE 0-3 /HPF (0-5)
[2023-11-05 17:16] LABS: PROTEIN/CREATININE RATIO,URINE 0.1 (<=0.2)
[2023-11-06 08:10] LABS: COMPLEMENT C3 104 mg/dL (82-167); COMPLEMENT C4 9 mg/dL (12-38)
== END 2023-11-05 08:43 | disposition home or self-care (01) ==
LOC: LAB.S 08:42
PROVIDERS: ATTEND Internal Medicine Rheumatology
DX: M25.50 Pain in unspecified joint (principal); R76.8 Other specified abnormal immunological findings in serum
CPT/HCPCS: 36415; 80053; 81001; 82570; 84156; 85025; 85651; 86140; 86160; 86225

== ENCOUNTER 2023-11-17 08:00 | Outpatient (CLI) | payer MEDICARE, OTHER ==
[2023-11-17 16:49] LABS: BILIRUBIN,URINE NEGATIVE (NEGATIVE); GLUCOSE, URINE (UA) NEGATIVE (NEGATIVE); KETONES,URINE (UA) NEGATIVE (NEGATIVE); LEUKOCYTE ESTERASE, URINE NEGATIVE (NEGATIVE); NITRITE,URINE NEGATIVE (NEGATIVE); OCCULT BLOOD,URINE TRACE-INTA (NEGATIVE); PROTEIN,URINE NEGATIVE (NEGATIVE); UROBILINOGEN,URINE 0.2 (NORMAL) E.U./dL (NORMAL)
[2023-11-17 17:01] LABS: CLARITY,URINE CLEAR (CLEAR)
[2023-11-17 17:15] LABS: BACTERIA,URINE None Seen /HPF (None Seen); RBC,URINE 0-5 /HPF (0-5); SQUAMOUS EPITHELIAL CELL,UR RARE Squamous (<= Few); WBC,URINE 0-3 /HPF (0-5)
== END 2023-11-17 23:59 | disposition home or self-care (01) ==
LOC: LAB.WC 08:00
PROVIDERS: ATTEND Nurse Practitioner
DX: R31.9 Hematuria, unspecified (principal)
CPT/HCPCS: 81001; 87086

== ENCOUNTER 2024-01-31 08:02 | Outpatient (CLI) | payer MEDICARE, OTHER ==
--- NOTE | 2024-02-01 08:41 | Mammography Report ---
BILATERAL DIGITAL SCREENING MAMMOGRAM 3D/2D WITH EXAGGERATED CC: 01/31/2024 CLINICAL: Routine screening. Comparison is made to exams dated: 02/01/2023 mammogram and 12/17/2021 mammogram - [facility]. Both breasts are heterogeneously dense, which may obscure small masses (category c / 51-75% glandular tissue). No significant masses, calcifications, or other findings are seen in either breast. There has been no significant interval change. IMPRESSION: NEGATIVE There is no mammographic evidence of malignancy. A 1 year screening mammogram is recommended. Based on the Tyrer Cuzick model (a risk assessment model) the patient's lifetime risk is 6.9% and her 10 year risk is 5.2%. According to the ACR, ACS, and NCCN guidelines, an annual breast MRI exam kaushal g with mammogram is recommended if the patient's lifetime risk is 20% or greater. This exam was interpreted at Station ID: [id number]. NOTE: For mammograms, a report in lay terms will be sent to the patient. Approximately 15% of breast malignancies will not be visualized mammographically. In the management of a palpable breast mass, a negative mammogram must not discourage biopsy of a clinically suspicious lesion. Electronically Signed By: Keon forrest/garcia:01/31/2024 09:24:13 letter sent: No_Letter ACR BI-RADS Category 1: Negative 3341F PARENCHYMAL PATTERN: (D) - The breast(s) demonstrate(s) heterogeneously dense fibroglandular cuco rivas. BI-RADS CATEGORY: (1) - 1 RECOMMENDATION: (ANNUAL) - Recommend routine annual screening mammography. [id number] 1 year screening LATERALITY: (B)
== END 2024-01-31 08:03 | disposition home or self-care (01) ==
LOC: DI.S 08:02
DX: Z12.31 Encounter for screening mammogram for malignant neoplasm of breast (principal); R92.333 Mammographic heterogeneous density, bilateral breasts